=== PATIENT | male | born 1995 | race Caucasian/White ===

== ENCOUNTER 2021-10-16 17:09 | Emergency (ER) | payer OTHER ==
[2021-10-16] MEDS ORDERED: BACTROBAN NASAL1 GM (19:34)
[2021-10-16] MEDS ORDERED: VIBRAMYCIN100 MG PO (19:34)
== END 2021-10-16 20:00 | disposition home or self-care (01) ==
LOC: FER 17:09
DX: S81.851A Open bite, right lower leg, initial encounter (principal); L02.415 Cutaneous abscess of right lower limb; W57.XXXA Bitten or stung by nonvenomous insect and other nonvenomous arthropods, initial encounter
CPT/HCPCS: 99282